=== PATIENT | female | born 1970 | race Caucasian/White ===

== ENCOUNTER → 2017-10-07 | Outpatient (CLI) | payer OTHER ==
[~2017-10-07] VITALS: Ht 170.2 cm; Wt 52.2 kg
[~2017-10-07] MED LIST: ABILIFY10 MG PO; AMBIEN10 MG PO; ARMOUR THYROID30 MG PO; BENTYL20 MG PO; CLONAZEPAM1 MG; CLONAZEPAM1 MG PO; COBAL-10001000 MCG/2 IM; COUMADIN3 MG PO; CYANOCOBAL1000 MCG/2 IM; ELIQUIS5 MG PO; ERGOCALCIF50000 UNIT PO; ERYTHROCIN BAS250 MG PO; FOLIC ACID1 MG PO; K-DUR20 MEQ PO; K-Lor,Klor-Con PO; KLONOPIN0.125 MG PO; KLONOPIN0.5 M1 PO; LITHIUM CARBON600 MG PO; LOVENOX80 MG/0.8 SC; LYRICA150 MG PO; Levothroid,Synthroid PO; MARINOL2.5 MG PO; NPLATE SC; OSCAL, OYSTER500 MG PO; Oyst-Cal D, Oscal W/ PO; PHENERGAN; PHENERGAN25 MG PO; PREVACID30 MG PO; REGLAN10 MG PO; REMERON15 MG G-TUBE; RISPERDAL1 MG PO; SEROQUEL200 MG PO; SYNTHROID100 MCG PO; SYNTHROID150 MCG PO; SYNTHROID200 MCG PO; SYNTHROID300 MCG PO; VITAMIN D34000 UNIT PO; XARELTO20 MG PO; ZOFRAN4 MG; ZOFRAN4 MG PO; ZOLOFT100 MG PO
[2017-10-07 10:38] LABS: INTER. NORMALIZED RATIO 1.1
[2017-10-07 10:41] LABS: PTT 28.2 SEC (25-37)
== END | disposition home or self-care (01) ==
LOC: AMB 09:41
PROVIDERS: Internal Medicine Gastroenterology
PROC: 0DB68ZX Excision of Stomach, Via Natural or Artificial Opening Endoscopic, Diagnostic (ICD-10-PCS; principal; 2017-10-07)
DX: R10.9 Unspecified abdominal pain (principal); R13.10 Dysphagia, unspecified; R63.4 Abnormal weight loss
CPT/HCPCS: 84132; 85049; 85610; 85730; 88305; 88342 TC; 93005